=== PATIENT | female | born 1995 | race Caucasian/White ===

== ENCOUNTER 2017-08-26 00:33 | Inpatient (IN) | payer BC ==
[2017-08-26 01:16] LABS: #Eosinphils 0.1 thou/uL (0.0-0.7); #Lymphocytes 1.6 thou/uL (1.20-3.40); #Monocytes 0.5 thou/uL (0.11-0.59); #Neutrophils 7.5 thou/uL (1.40-6.50); %Basophils 0.3 % (0.0-1.0); %Eosinophils 0.8 % (0.0-10.0); %Lymphocytes 16.5 % (21.0-51.0); %Neutrophils 77.5 % (42.0-75.0); Hemoglobin 12.6 g/dL (12.0-16.0); Mean Corpuscular HGB CONC 35.1 g/dL (32.0-36.0); Mean Corpuscular Hemoglobin 32.5 pg (27.0-31.0); Mean Corpuscular Volume 92.4 fl (81.0-99.0); Mean Platelet Volume 6.5 fL (7.4-10.4); Platelet Count 331 thou/uL (130-400); RBC Distribution Width 11.8 % (11.5-14.5); Red Blood Cell (RBC) Count 3.89 mill/uL (4.20-5.40); White Blood Cell (WBC) Count 9.7 thou/uL (4.8-10.8)
[2017-08-26 01:22] LABS: Bilirubin Negative (Negative); Blood, Urine Trace (Negative); Clarity CLOUDY (Clear); Glucose, Urine (Dipstick) Negative (Negative); Leukocyte Large (Negative); Nitrite Positive (Negative); Pregnancy Test - Urine (BHCG) Negative (Negative); Pregu Control Background? CLEAR/WHITE (CLR/WHITE); Pregu Control Bar Appear? YES (CONTROL BAR); Protein, Urine (Dipstick) 30 mg/dL (Neg-Trace); Urobilinogen 0.2 mg/dL (0.2-1.0)
[2017-08-26 01:25] LABS: Bacteria/HPF 4+ HPF (None Seen); Hyaline Casts/LPF 4-6 HYALINE CAST LPF (0-3 Hyaline); Pathc Cast-AUWi Flag 0.94 (0-2.49); Squamous Epithelial None Seen HPF (0-3)
[2017-08-26 01:27] LABS: Yeast-AUWi Flag 171.2 (0-25.0)
[2017-08-26 01:28] LABS: Yeast-All Forms None Seen HPF (None Seen)
[2017-08-26 01:34] LABS: ALT (SGPT) 13 U/L (8-55); AST (SGOT) 9 U/L (5-34); Alkaline Phosphatase 78 U/L (40-150); Anion Gap 13 mmol/L (10-20); BUN (Urea Nitrogen) 19 mg/dL (7.0-18.7); Bilirubin, Total Less than 0.2 mg/dL (0.2-1.2); Calc. Creatinine Clearance 0 mL/min (70-130); Calcium 9.4 mg/dL (7.8-10.44); Carbon Dioxide 24 mmol/L (22-29); Chloride 107 mmol/L (98-107); Estimated GFR-MDRD 75; Globulin 3.4 g/dL (2.4-3.5); Glucose 104 mg/dL (70-105); Potassium 4.1 mmol/L (3.5-5.1); Protein, Total 7.4 g/dL (6.0-8.3); Sodium 140 mmol/L (136-145)
[2017-08-26] MEDS ORDERED: Ketorolac Tromethamine 30 MG/ML VIAL ONE (02:25)
[2017-08-26] MEDS ORDERED: Ondansetron HCl/PF 4 MG/2 ML Vial ONE ×4 (02:25→16:38)
[2017-08-26 07:17] LABS: Lactic Acid 1.1 mmol/L (0.5-2.2)
--- NOTE | 2017-08-26 08:10 | CT ---
PRELIMINARY REPORT/[facility]/EMERGENCY AFTER HOURS PROCEDURE: EXAM: CT Abdomen and Pelvis Without Intravenous Contrast EXAM DATE/TIME: Exam ordered 08/26/2017 2:27 AM CLINICAL HISTORY: 22 years old, female; Pain; Abdominal pain; Flank; Left; Patient HX: Er 3; F22 presents to ed left fl ank pain that started x3 hours ago. HX of kidney stones. Pt states she has had an ongoing uti for a f ew months. Pt states she has dome multiple rounds of antibiotics. Pt states nausea, vomiting today. D enies fever, chills, cough. Lmp was this last week TECHNIQUE: Axial computed tomography images of the abdomen and pelvis without intravenous contrast. Coronal reformatted images were created and reviewed. COMPARISON: No relevant prior studies available. FINDINGS: Lower thorax: No acute findings. ABDOMEN: Liver: Unremarkable. Gallbladder and bile ducts: Unremarkable. No calcified stones. No ductal dilation. Pancreas: Unremarkable. No ductal dilation. Spleen: Unremarkable. No splenomegaly. Adrenals: Unremarkable. No mass. Kidneys and ureters: 1 cm obstructing stone at the left UPJ causing mild obstructive uropathy. Nonob structing stones in the kidneys bilaterally. Stomach and bowel: Unremarkable. No obstruction. No mucosal thickening. Appendix: Normal appendix. PELVIS: Bladder: Unremarkable. No stones. Reproductive: Uterus and ovaries are unremarkable. ABDOMEN and PELVIS: Intraperitoneal space: Unremarkable. No free air. No significant fluid collection. Bones/joints: No acute fracture. No dislocation. Soft tissues: Unremarkable. Vasculature: Unremarkable. No abdominal aortic aneurysm. Lymph nodes: Multiple mildly prominent retroperitoneal lymph nodes, none of which exceed 1 cm in shor t axis. IMPRESSION: 1 cm obstructing stone at the left UPJ causing mild obstructive uropathy. Thank you for allowing us to participate in the care of your patient. Dictated and Authenticated by: Hector Morales MD 08/26/2017 2:47 AM Central Time ([place] & [place]) FINAL REPORT CT ABDOMEN AND PELVIS WITHOUT CONTRAST STONE PROTOCOL: Date: 08/26/17 HISTORY: Left flank pain. COMPARISON: None. FINDINGS/IMPRESSION: Findings and impression are concordant with the preliminary report by Abdirizak. There are multiple bilate ral calculi in both renal collecting systems, largest in the left renal collecting system with multip le large calculi. POS: [facility]
[2017-08-26] MEDS ORDERED: Midazolam HCl 2 mg/2 ml Vial ONE (09:50)
[2017-08-26] MEDS ORDERED: Fentanyl 100 MCG/2 ML VIAL ONE (09:50)
[2017-08-26] MEDS ORDERED: Morphine 2 MG/ML SYRINGE ONE (09:58)
[2017-08-26] MEDS ORDERED: diphenhydrAMINE 50 MG/ML VIAL IVP PRN (11:01)
[2017-08-26] MEDS ORDERED: Morphine 2 MG/ML SYRINGE IVP PRN ×2 (11:01)
[2017-08-26] MEDS ORDERED: hydrALAZINE 20 MG/ML VIAL SLOW IVP PRN ×2 (11:01)
[2017-08-26] MEDS ORDERED: HYDROcodone/Acetaminophen 5/325 mg Tablet PO PRN (11:01)
[2017-08-26] MEDS ORDERED: Mag-Al 1200 mg/1200 mg/30 ML UDCUP PO PRN (11:01)
[2017-08-26] MEDS ORDERED: Bisacodyl 10 MG SUPP PR PRN (11:01)
[2017-08-26] MEDS ORDERED: SUGAMMADEX SODIUM 200 MG/2 ML VIAL ONE (11:02)
--- NOTE | 2017-08-26 11:56 | RAD ---
RETROGRADE IVP: Date: 08/26/17 HISTORY: Left-sided stent. COMPARISON: Stone protocol CT same date. FINDINGS: Three spot images of the pelvis were submitted for interpretation. Satisfactory placement of left ure teral stent. IMPRESSION: Satisfactory appearance left ureteral stent. POS: [facility]
--- NOTE | 2017-08-26 12:39 | CON ---
DATE OF CONSULTATION: 08/26/2017 REASON FOR CONSULT: Left hydronephrosis with nitrite positive urine. HISTORY OF PRESENT ILLNESS: Iftikhar is a 22-year-old obese female with history of cystinuria followed by Dr. Castelan at [facility] in [place]. She has had multiple stone interventions by Dr. Castelan; per patient, approximately 4 PCNLs and 4 laser lithotripsies and multiple stents in the past. The patient had an appointment few weeks ago; however, missed that appointment with Dr. Castelan. She states that Dr. Castelan is aware of her left stone burden; however, this appears to have been progressive increase in size. She presented with 1 day history of acute left flank pain. She denies history of dysuria, gross hematuria, chills, nausea, vomiting. As the emergency room called me this morning regarding her findings, ER requesting patient to be discharged. However , she has nitrite positive urine. I recommend the patient undergo ureteral stent placement. Levaquin has been provided by the emergency room. Currently, she is resting comfortably. Presenting pain is 8/10, currently well controlled. PAST MEDICAL HISTORY: Obesity, cystinuria, recurrent kidney stones since 11 years of age. PAST SURGICAL HISTORY: Per patient, bilateral percutaneous nephrolithotomy, approximately 4 in number, multiple ureteroscopy, laser lithotripsy, stent placement approximately 4 per patient. MEDICATIONS AT HOME: Include Thiola and potassium citrate. PHYSICAL EXAMINATION: VITAL SIGNS: Stable at 138/81, pulse variable from 92-110, respirations 20. She is afebrile. Currently pain is rated 1/10 on the pain scale. GENERAL: Patient appears to be in no acute distress, alert and oriented x3. HEENT: Unremarkable. HEART: Regular rate. LUNGS: Clear. ABDOMEN: Obese, protuberant. There is no gross CVA tenderness. GENITOURINARY: Deferred at this time. EXTREMITIES: No cyanosis, clubbing or edema. NEUROLOGIC: No gross focal deficits. PSYCHIATRIC: Appears to be appropriate and intact. ALLERGIES: She is allergic to BACTRIM and PENICILLIN. PERTINENT LABORATORY DATA AND IMAGIN. Urinalysis; pH of 7.0, 30 protein, positive nitrites, large leukocytes, 4-6 RBCs, greater than 50 WBCs, no epithelials, 4+ bacteria. Urine culture has been sent by the emergency room. Lactic acid is within normal limits. Calcium 9.4, creatinine 0.9. White count 9, hemoglobin 12, platelets 331, and [address] stone protocol. 3. Bilateral nonobstructing renal calculi, left kidney with mild hydronephrosis due to 1 cm left UPJ stone. I did review the CT myself demonstrating bilateral renal calculi burden; right kidney lower pole 8 mm, left lower pole kidney stones x2, 1 cm and 8 mm respectively, left UPJ stone measures approximately 8-10 mm. There is no significant perinephritic stranding. IMPRESSION/PLAN: Ms. Simms is a 22-year-old female with history of recurrent kidney stones since 11 years of age due to cystinuria followed by Dr. Castelan at [facility]. She has undergone multiple surgical interventions and presents with left flank pain due to left UPJ stone with nitrite positive urine. I recommended ureteral stent placement as she does demonstrate partially obstructing stone with positive urine for urinary tract infection. She desires to proceed. I informed the patient that given she has multiple large left stone burden, percutaneous nephrolithotomy would be best option to treat stones. She desires to follow up with Dr. Castelan after stent placement. Risks and complications reviewed, she desires to proceed. [facility]
--- NOTE | 2017-08-26 13:39 | OP ---
DATE OF PROCEDURE: 08/26/2017 PREOPERATIVE DIAGNOSES: 1. Bilateral nonobstructing renal calculi, left UPJ stone, 1 cm. 2. Bilateral renal calculi dimensions; right lower pole 8 mm, left stone burden ; lower pole 1 cm, 8 mm, UPJ 1 cm respectively. 3. Urinalysis positive for urinary tract infection. 4. Fever. POSTOPERATIVE DIAGNOSES: 1. Bilateral nonobstructing renal calculi, left UPJ stone, 1 cm. 2. Bilateral renal calculi dimensions; right lower pole 8 mm, left stone burden ; lower pole 1 cm, 8 mm, UPJ 1 cm respectively. 3. Urinalysis positive for urinary tract infection. 4. Fever. PROCEDURE: Cystoscopy, left 6 x 24 stent. SURGEON: Nadine Pang D.O. ANESTHESIA: General. COMPLICATIONS: None apparent. DISPOSITION: Recovery room in stable condition. INDICATIONS FOR PROCEDURE AND HISTORY: Ms. Simms is a 22-year-old female with history of cystinuria followed by Dr. Aranza Castelan at [facility] in [place]. Patient is on Thiola, potassium citrate. Patient is aware of her stone burden, has had follow up with Dr. Castelan, however, missed last appointment. She presented with 1 day history of acute left flank pain. Denies history of nausea, vomiting, and fever. She has no leukocytosis. Renal function is stable. As her urinalysis demonstrates nitrite positive urine, informed patient regarding ureteral stent placement as there is a UTI component with left UPJ stone. She desired to proceed. Risks and complications including , but not limited to, bleeding, pain, infection, injury to adjacent organs, urosepsis reviewed. All questions were answered to her satisfaction, and desire to proceed. The patient desires to follow up with Dr. Castelan for definitive stone surgery. I informed the patient that percutaneous nephrolithotomy would be best given the large stone burden of the left kidney. DESCRIPTION OF THE PROCEDURE: After an informed consent is signed, the patient is taken to the operating room, placed in a dorsal lithotomy position with the genital area prepped and draped in the usual surgical sterile fashion. The stones were somewhat difficult to see on fluoroscopy. She has multiple left stone burden as above. An open-ended catheter was utilized to pass the stone to the level of the proximal ureter, a 0.35 sensor wire was then placed into the left upper pole. A 6 x 24 double-J ureteral stent was placed. After anesthesia was induced, patient did have temperature of 101, prior to passing the cystoscope. As such, I did place an indwelling urethral Agustin catheter for strict I's and O's and aggressive IV fluid hydration. Given her fever with positive nitrites of urine, we'll admit for IV antibiotic's. Blood cultures have been obtained. We will continue broad spectrum antibiotic therapy. Dual antibiotic regimen in addition to Levaquin and gentamicin 100 mg provided intraoperatively. Clinical update addendum: Contacted mother Marisol Mother provided important clinical history. Patient has had recurrent UTI multi -drug-resistant. Dr. Castelan placed patient on prophylactic cephalosporin. Patient known to have quinolone resistant UTI which I was unaware of as patient did not provide this information. Allergies to penicillin reaction is rash. She is likely unable to tolerate Bactrim. Meropenem is provided in the recovery room , patient was monitored with no subsequent reaction. We'll monitor patient in house until culture finalizes with sensitivity. [facility]
[2017-08-26] MEDS ORDERED: Meropenem 1 GM in Sodium Chloride 0.9% 100 ML IVPB SCH (14:00)
[2017-08-26] MEDS ORDERED: Meropenem 1 GM in Sterile Water 20 ML SLOW IVP SCH (14:00)
[2017-08-26] MEDS: Phenazopyridine HCl 97.5 MG TABLET PO PRN (16:21)
[2017-08-26] MEDS ORDERED: Propofol 200 MG/20 ML VIAL ONE (16:38)
[2017-08-26] MEDS ORDERED: Lidocaine 1% PF 5 ML VIAL ONE (16:38)
[2017-08-26] MEDS ORDERED: Dexamethasone 20 MG/5 ML VIAL ONE (16:38)
[2017-08-26] MEDS ORDERED: Glycopyrrolate 0.2 MG/ML 5 ML SYRINGE ONE (16:38)
[2017-08-26] MEDS: Sodium Chloride 0.9% 1,000 ML IV SCH ×2 (18:38→19:19)
[2017-08-26] MEDS: Oxybutynin 5 MG TAB PO PRN (19:19)
[2017-08-26] MEDS ORDERED: FLU VACC QS2017-18 36 mo. & older 0.5 ML SYRINGE IM ONE (21:00)
[2017-08-26] MEDS: Meropenem 1 GM in Sterile Water 20 ML SLOW IVP SCH (21:00)
[2017-08-26] MEDS: Docusate 100 MG CAP PO SCH (23:00)
[2017-08-27] MEDS: Sodium Chloride 0.9% 1,000 ML IV SCH ×5 (03:24→22:54)
[2017-08-27] MEDS: Meropenem 1 GM in Sterile Water 20 ML SLOW IVP SCH ×3 (04:18→20:53)
[2017-08-27 04:19] LABS: #Lymphocytes 1.3 thou/uL (1.20-3.40); #Monocytes 0.8 thou/uL (0.11-0.59); %Eosinophils 0.2 % (0.0-10.0); %Lymphocytes 9.9 % (21.0-51.0); %Monocytes 5.8 % (0.0-10.0); %Neutrophils 84.1 % (42.0-75.0); Hemoglobin 11.2 g/dL (12.0-16.0); Mean Corpuscular HGB CONC 34.3 g/dL (32.0-36.0); Mean Corpuscular Volume 93.4 fl (81.0-99.0); Mean Platelet Volume 6.6 fL (7.4-10.4); Platelet Count 288 thou/uL (130-400); RBC Distribution Width 11.8 % (11.5-14.5); Red Blood Cell (RBC) Count 3.51 mill/uL (4.20-5.40)
[2017-08-27 04:31] LABS: Anion Gap 10 mmol/L (10-20); BUN (Urea Nitrogen) 7 mg/dL (7.0-18.7); Calc. Creatinine Clearance 0 mL/min (70-130); Calcium 8.6 mg/dL (7.8-10.44); Carbon Dioxide 22 mmol/L (22-29); Chloride 111 mmol/L (98-107); Estimated GFR-MDRD Greater than 90; Glucose 120 mg/dL (70-105); Potassium 3.8 mmol/L (3.5-5.1); Sodium 139 mmol/L (136-145)
--- NOTE | 2017-08-27 06:39 | PRG ---
DATE OF SERVICE: 08/27/2017 SUBJECTIVE: The patient is feeling well. Denies chills, nausea, vomiting. PHYSICAL EXAMINATION: VITAL SIGNS: Stable. I's and O's are 2700 in, 3200 out. GENITOURINARY: Urine is clear, dilute. ABDOMEN: Soft. No rigidity, no rebound, no CVA tenderness. PERTINENT LABORATORY DATA: White blood cell count 13, hemoglobin 11, platelets 281, creatinine 0.6. Urine culture is pending. IMPRESSION AND PLAN: Ms. Simms is a 22-year-old female with history of cystinuria, recurrent kidney stones who presented with left hydronephrosis, multiple, left renal calculi UPJ stone with mild hydr onephrosis. 1. History of fever, therefore, on observation. 2. History of multidrug resistant urinary tract infection. Currently on meropenem, which she is cher erating uneventfully. Due to her history of multidrug resistant urinary tract infection, I informed the patient and mother, we will keep her in house until culture finalized for outpatient antibiotic t herapy. The patient established with Dr. Aranza Castelan, will proceed with definitive treatment wit h her in [place]. Anticipate discharge when culture finalized.
[2017-08-27] MEDS: Docusate 100 MG CAP PO SCH ×2 (09:06→20:53)
[2017-08-27] MEDS: Phenazopyridine HCl 97.5 MG TABLET PO PRN (09:07)
[2017-08-27] MEDS: HYDROcodone/Acetaminophen 5/325 mg Tablet PO PRN ×3 (11:55→22:26)
[2017-08-27] MEDS: Oxybutynin 5 MG TAB PO PRN (20:53)
[2017-08-28] MEDS: Phenazopyridine HCl 97.5 MG TABLET PO PRN ×2 (00:50→19:16)
[2017-08-28] MEDS: Meropenem 1 GM in Sterile Water 20 ML SLOW IVP SCH ×3 (04:28→20:13)
[2017-08-28] MEDS: Sodium Chloride 0.9% 1,000 ML IV SCH ×3 (04:29→11:01)
[2017-08-28 04:35] LABS: #Lymphocytes 1.6 thou/uL (1.20-3.40); #Monocytes 0.7 thou/uL (0.11-0.59); %Basophils 0.5 % (0.0-1.0); %Eosinophils 0.7 % (0.0-10.0); %Lymphocytes 21.1 % (21.0-51.0); %Monocytes 9.8 % (0.0-10.0); %Neutrophils 67.9 % (42.0-75.0); Hemoglobin 11.4 g/dL (12.0-16.0); Mean Corpuscular HGB CONC 34.3 g/dL (32.0-36.0); Mean Corpuscular Hemoglobin 32.2 pg (27.0-31.0); Mean Corpuscular Volume 93.8 fl (81.0-99.0); Mean Platelet Volume 6.9 fL (7.4-10.4); Platelet Count 232 thou/uL (130-400); RBC Distribution Width 11.8 % (11.5-14.5); Red Blood Cell (RBC) Count 3.54 mill/uL (4.20-5.40); White Blood Cell (WBC) Count 7.3 thou/uL (4.8-10.8)
--- NOTE | 2017-08-28 08:12 | PRG ---
DATE OF SERVICE: 08/28/2017 SUBJECTIVE: The patient feeling fine. Mother at bedside. PHYSICAL EXAMINATION: VITAL SIGNS: T-max of 100.1 this morning at 4, heart rate 101, 98%, 127/83. I's and O's 1300 of uri ne out. ABDOMEN: Soft. No rigidity, no rebound, no CVA tenderness. LABORATORY DATA: Blood culture negative. Urine culture demonstrating E. coli resistant to quinolone s, it is sensitive to cephalosporins, meropenem. IMPRESSION AND PLAN: Ms. Aguirre is a 22-year-old female with history of cystinuria, her stones were difficult to see on KUB, I will obtain a followup KUB for further assessment. The patient has an ap pointment with her urologist in [place], Dr. Aranza Adams who will perform a percutaneous nephrolith otomy. I will change her to oral cephalosporin upon discharge. However, she has a low-grade fever, we will keep in house until tomorrow. If afebrile for 24 hours, which is transitioned to oral cephalo sporins. Mother requesting I remove stent pull after her surgical intervention in [place]. I informe d them that I will require followup imaging prior to stent pull. Mother verbalizes understanding. A nticipate discharge tomorrow.
[2017-08-28] MEDS: Docusate 100 MG CAP PO SCH ×2 (08:18→20:13)
[2017-08-28] MEDS: HYDROcodone/Acetaminophen 5/325 mg Tablet PO PRN (09:41)
[2017-08-28] MEDS ORDERED: Sodium Chloride 0.9% 1,000 ML IV SCH (12:15)
--- NOTE | 2017-08-28 15:34 | RAD ---
KUB: Date: 08-28-17 Comparison: 08-26-17 History: Pre-operative patient. Left double J ureteral stent. Renal stone disease. FINDINGS: There is a left sided double J ureteral stent in place. There is a rounded calcific density projecting adjacent to the proximal aspect of the stent which may represent a stone within the proximal left ureter and/or renal pelvis measuring 1.1 cm in craniocaud al dimension. There are two calcifications in the expected location of the lower pole of the left kidney measuring up to 1.1 cm. There is a calcification along the course of the stent within the left hemipelvis suggesting a probab le phlebolith. The bowel gas pattern appears nonobstructed. IMPRESSION: Multiple left upper quadrant calcifications, consistent with left renal stone disease, similar when c ompared to CT exam performed 08-26-17. POS: [facility]
[2017-08-28] MEDS ORDERED: Acetaminophen 325 MG TAB PO PRN (16:28)
[2017-08-28] MEDS: Oxybutynin 5 MG TAB PO PRN (20:12)
[2017-08-29] MEDS: Meropenem 1 GM in Sterile Water 20 ML SLOW IVP SCH (04:54)
--- NOTE | 2017-08-29 07:57 | PRG ---
DATE OF SERVICE: 08/29/2017 SUBJECTIVE: The patient feeling well. OBJECTIVE: VITAL SIGNS: Stable, afebrile. ABDOMEN: Soft, nontender, nondistended. IMPRESSION AND PLAN: 1. Ms. Buitrago is a 22-year-old female with history of recurrent kidney stone due to cystinuria followed by Dr. Castelan at [facility]. 2. Bilateral large stone burden presented with a left UPJ stone with hydronephrosis. 3. History of E. coli, multidrug resistant. 4. History of recurrent urinary tract infection, multidrug resistant. Cultures finalize, has been sensitive to meropenem. She will be transitioned to oral cephalosporin. The patient had disposition with Dr. Aranza Castelan 11/2017, surgery scheduled for 09/05/2017 in [place]. They requested I remove subsequent stent locally. I will coordinate this with Dr. Castelan. Her KUB was obtained demonstrating faint stone densities. Upon surgical intervention with [facility], they are informed to call me for followup for a local cystoscopy stent pull. Pending progress and review of records, imaging prior to stent pull will be coordinated. The patient will be discharged with Omnicef for 14 days. ANIS[facility]
[2017-08-29] MEDS: Docusate 100 MG CAP PO SCH (08:30)
[2017-08-29 08:35] VITALS: BP 116/80; TEMP 97.7
--- NOTE | 2017-08-29 13:58 | DIS ---
DATE OF ADMISSION: 08/26/2017 DATE OF DISCHARGE: 08/29/2017 ADMITTING DIAGNOSES: Left hydronephrosis, urinary tract infection. BRIEF HOSPITAL COURSE: Ms. Simms is 22-year-old female with recurrent kidney stones due to cystinuria and undergone multiple percutaneous nephrolithotomies and ureteroscopies in [place]. She presented with a left UPJ stone with hydronephrosis, large stone burden. Status post stent, which she tolerated well , I did keep her inhouse as she presented with fever just prior to initiating anesthesia. Blood culture negative, urine cultures demonstrating E. coli multidrug resistant, sensitive to cephalosporins, meropenem. She had a low- grade temperature, has been afebrile for 24 hours. DISCHARGE MEDICATIONS: She is discharged with [place] 5/325 #50, Azo p.r.n., VESIcare 5 mg one p.o. daily #33, Omnicef 300 mg 1 p.o. b.i.d. x14 days, Colace 100 mg b.i.d. The patient's mother will contact my office upon surgical disposition with Dr. Castelan at [facility], she is scheduled for percutaneous nephrolithotomy with Dr. Castelan on 09/05/2016. I informed them that they should contact me regarding the clinical course as I will need to coordinate imaging prior to stent pull local as they request be done locally with me. DISPOSITION: Pending with me , after surgical intervention with Dr. Castelan. [facility]
== END 2017-08-29 10:15 | disposition home or self-care (01) | DRG 694 ==
LOC: ERS 00:33 → SURG A 08:08 → SDC 10:58 → SURG A 12:25
PROVIDERS: ADMIT Urology; ATTEND Urology
PROC: 0T778DZ Dilation of Left Ureter with Intraluminal Device, Via Natural or Artificial Opening Endoscopic (ICD-10-PCS; principal; 2017-08-26)
DX: N13.2 Hydronephrosis with renal and ureteral calculous obstruction (principal); Z68.41 Body mass index [BMI] 40.0-44.9, adult; N39.0 Urinary tract infection, site not specified; E66.9 Obesity, unspecified; Z16.23 Resistance to quinolones and fluoroquinolones; B96.20 Unspecified Escherichia coli [E. coli] as the cause of diseases classified elsewhere
CPT/HCPCS: 36415; 74018; 74176; 74420; 80048; 80053; 81003; 81015; 81025; 83605; 85025; 87040; 87077; 87086; 87186; 96365; 96366; 96375; A4216; C1758; J0131; J1100; J1885; J1956; J2001; J2185; J2250; J2270; J2405; J2704; J3010